=== PATIENT | male | born 1995 | race African-American/Black ===

== ENCOUNTER 2021-10-31 00:42 | Emergency (ER) | payer OTHER ==
[~2021-10-31] VITALS: Ht 182.9 cm; Wt 150.0 kg
[2021-10-31] MEDS ORDERED: KETOROLAC 60MG/2ML VIAL IM ONE (01:15)
[2021-10-31 03:41] VITALS: BP 139/89
== END 2021-10-31 02:41 | disposition home or self-care (01) ==
LOC: ER 00:42
DX: U07.1 COVID-19 (principal)
CPT/HCPCS: 71045; 87426; 87804; 96372; 99284; J1885